=== PATIENT | female | born 1965 | race Two or more races ===

== ENCOUNTER 2020-06-20 07:00 | Day surgery (SDC) | payer OTHER ==
[~2020-06-20 07:00] MED LIST: ADULT LOW DOSE81 M1 PO; CRESTOR5 MG PO; FORTAMET500 MG PO; LEVOTHYROXINE25 MCG PO; LOSARTAN-HCTZ1 EAC1 PO; TOPROL XL100 M1 PO
== END 2020-06-20 18:30 | disposition home or self-care (01) ==
LOC: CIR.AMB 07:00 → ADM 07:00 → CIR.AMB 18:30
PROVIDERS: ATTEND Obstetrics & Gynecology Obstetrics
DX: N93.8 Other specified abnormal uterine and vaginal bleeding (principal); Z20.822 Contact with and (suspected) exposure to COVID-19